=== PATIENT | male | born 2005 | race American Indian/Alaskan Native ===

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

== ENCOUNTER 2025-06-02 06:31 | Emergency (ER) | payer BC, MEDICAID, OTHER ==
[2025-06-02] MEDS: GI Cocktail Oral Solution 30 ML PO ONE (06:53)
[2025-06-02 07:16] VITALS: BP 152/72; PULSE 66
== END 2025-06-02 07:10 | disposition home or self-care (01) ==
LOC: DL.ED 06:31
DX: R07.89 Other chest pain (principal); K21.9 Gastro-esophageal reflux disease without esophagitis; Z91.030 Bee allergy status
CPT/HCPCS: 71045; 93005; 93010; 99284; A9270